=== PATIENT | male | born 1995 | race Two or more races ===

== ENCOUNTER 2023-09-09 19:37 | Emergency (ER) | payer SELFPAY ==
[2023-09-09 20:21] VITALS: BP 146/78; PULSE 60; RESP 18; TEMP 36.5; O2SAT 97; BMI 49.3
[2023-09-09] MEDS: Acetaminophen 325 MG TABLET 975 MG PO (20:26)
[2023-09-09] MEDS: Cyclobenzaprine HCl 10 MG TABLET PO (22:14)
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
== END 2023-09-09 22:31 | disposition home or self-care (01) ==
PROVIDERS: Emergency Provider Emergency Medicine
DX: S39.012A Strain of muscle, fascia and tendon of lower back, initial encounter (principal); V43.62XA Car passenger injured in collision with other type car in traffic accident, initial encounter; Y93.89 Activity, other specified; Y92.415 Exit ramp or entrance ramp of street or highway as the place of occurrence of the external cause; Y99.9 Unspecified external cause status
CPT/HCPCS: 99283